=== PATIENT | female | born 1965 | race Two or more races ===

== ENCOUNTER 2017-05-23 06:22 | Day surgery (SDC) | payer SELFPAY ==
[2017-05-14 13:47] VITALS: BMI 22.9
[~2017-05-23 06:22] MED LIST: HEPARIN NA (PORCINE) 5,000 UNITS/ML 1ML VIAL SQ ONE
[2017-05-23] MEDS ORDERED: HEPARIN NA (PORCINE) 5,000 UNITS/ML 1ML VIAL ONE (07:20)
[2017-05-23] MEDS ORDERED: BUPIVACAINE HCL/PF 2.5 MG/ML - 30 ML VIAL IJ ONE (07:23)
[2017-05-23] MEDS ORDERED: LIDOCAINE 1%/EPI 1:100000 (20 ML MULTI DOSE VIAL) ONE (07:23)
[2017-05-23] MEDS ORDERED: EPINEPHrine 1:1,000 1 MG/1 ML - 30ML VIAL (INJECTION) ONE (07:23)
[2017-05-23] MEDS ORDERED: LIDOCAINE HCL 1%, 10 MG/ML (20ML VIAL) ONE (07:23)
[2017-05-23] MEDS ORDERED: PROPOFOL 20 ML ONE (07:28)
[2017-05-23] MEDS ORDERED: NEOSTIGMINE METHYLSULFATE 0.5 MG/ML - 10 ML MDV ONE (07:29)
[2017-05-23] MEDS ORDERED: ROCURONIUM BROMIDE 50 MG/5 ML VIAL ONE ×3 (07:29→13:43)
[2017-05-23] MEDS ORDERED: MIDAZOLAM HCL 2 MG/2 ML SINGLE DOSE VIAL ONE (07:31)
[2017-05-23] MEDS ORDERED: HEPARIN NA (PORCINE) 5,000 UNITS/ML 1ML VIAL SQ ONE (08:20)
[2017-05-23] MEDS ORDERED: DESFLURANE GAS 240 ML BOTTLE IH ONE ×2 (10:06→16:18)
[2017-05-23] MEDS ORDERED: HYDROmorphone HCL/PF 1 MG/ML VIAL (FOR PYXIS CHARGING ONLY) ONE ×4 (10:24→17:42)
[2017-05-23] MEDS ORDERED: ePHEDrine SULFATE 50 MG/1 ML AMPULE ONE (11:15)
[2017-05-23] MEDS ORDERED: PHENYLEPHRINE HCL 10 MG/1 ML SINGLE DOSE VIAL ONE (11:15)
[2017-05-23] MEDS ORDERED: PROMETHAZINE HCL 25 MG/1 ML VIAL IVPUSH PRN (16:23)
[2017-05-23] MEDS ORDERED: HYDROmorphone *PCA* 10MG/50ML DISP.SYRIN PCA ONE (16:24)
[2017-05-23] MEDS ORDERED: HYDROmorphone *PCA* 10MG/50ML DISP.SYRIN PCA SCH (16:30)
[2017-05-23] MEDS ORDERED: BUPIVACAINE HCL/PF 0.25% (2.5MG/ML) 10 ML VIAL IJ ONE (17:41)
[2017-05-23] MEDS: HYDROmorphone *PCA* 10MG/50ML DISP.SYRIN PCA SCH ×2 (19:05→20:10)
[2017-05-23] MEDS ORDERED: ACETAMINOPHEN 325 MG TABLET (FP) PO PRN (19:38)
[2017-05-23] MEDS ORDERED: ZOLPIDEM TARTRATE 5 MG TABLET PO PRN (19:38)
[2017-05-23] MEDS ORDERED: LACTATED RINGERS SOLUTION 1,000 ML IV SCH (19:45)
[2017-05-23] MEDS ORDERED: oxyCODONE HCL 5 MG TABLET PO PRN (19:51)
[2017-05-23] MEDS ORDERED: CEFAZOLIN 1 GM in DEXTROSE 5%-WATER - 50 ML IVPB SCH (21:00)
[2017-05-23] MEDS: ONDANSETRON 4 MG/2 ML VIAL IVPB PRN (22:03)
[2017-05-23] MEDS: DOCUSATE SODIUM 100 MG CAPSULE (FP) PO SCH (22:23)
[2017-05-23] MEDS ORDERED: ENOXAPARIN NA (PORCINE) 40 MG/0.4 ML DISP.SYRIN SQ ONE (23:00)
[2017-05-24] MEDS: CEFAZOLIN (PRE-DOCKED) 50 ML IVPB SCH ×2 (02:04→08:55)
[2017-05-24] MEDS: ONDANSETRON 4 MG/2 ML VIAL IVPB PRN (02:15)
--- NOTE | 2017-05-24 08:59 | PN ---
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 Pt states that pain is well controlled, reports no anesthetic complications, and is tolerating oral intake. Will D/C IV TRUCK STRIKER and switch to oral pain medication in anticipation of discharge home later today.
[2017-05-24] MEDS: DOCUSATE SODIUM 100 MG CAPSULE (FP) PO SCH (09:33)
[2017-05-24] MEDS: oxyCODONE HCL 5 MG TABLET PO PRN ×3 (11:51→18:07)
[2017-05-24 14:23] VITALS: BP 128/75; PULSE 91; TEMP 98
--- NOTE | 2017-05-25 14:57 | PATH ---
Surgical Pathology Report Patient Name: ELMER UPTON [facility]. Rec. #: [id number] /Age/Gender: 1965 (Age: 51) / F Account: [id number] Location: [facility] AMBULATORY Taken: 05/24/2017 Received: 05/24/2017 Reported: 05/25/2017 Physicians: Christy Blackburn M.D. Specimen(s) Received A: RIGHT BREAST SKIN AND TISSUE B: LEFT BREAST SKIN AND TISSUE C: ABDOMEN SKIN AND TISSUE Clinical History Cosmetic Final Diagnosis A. BREAST, SKIN AND TISSUE, RIGHT: BENIGN BREAST TISSUE WITH FIBROCYSTIC CHANGE WITH FOCAL USUAL DUCTAL HYPERPLASIA AND FOCI OF STROMAL FIBROSIS. Comment: Immunohistochemical stain for e-cadherin performed and interpreted at [facility] on block A2 is positive, supporting ductal hyperplasia. B. BREAST, SKIN AND TISSUE, LEFT: BENIGN BREAST TISSUE WITH FIBROCYSTIC CHANGE WITH FOCAL USUAL DUCTAL HYPERPLASIA AND FOCI OF STROMAL FIBROSIS. C. ABDOMINAL SKIN AND TISSUE, ABDOMINOPLASTY: UNREMARKABLE SKIN AND UNDERLINE SOFT TISSUE (GROSS EXAM). Electronically Signed Fabian Rogers M.D. Gross Description A. Received in formalin labeled "right breast skin and tissue" is a 64 g, 10.3 x 10.0 x 2.0 cm aggregate of multiple minor-yellow, irregular, unoriented fragments of fibroadipose tissue and a brown, unremarkable skin. Sectioning reveals foci of white fibrous tissue. No definitive masses are identified. Sales Project [employer] sections are submitted in 3 cassettes. B. Received in formalin labeled "left breast skin and tissue" is an 89 g, 10.0 x 10.0 x 2.3 cm aggregate of multiple minor-yellow, irregular, unoriented portions of fibroadipose tissue and brown, unremarkable skin. Sectioning reveals foci of white fibrous tissue. No definitive masses are identified. Sales Project Manager sections are submitted in 4 cassettes. C. Received in formalin labeled "abdomen skin and tissue" is a 799 g, 30.0 x 15.0 x 3.0 cm aggregate of 2 brown, triangular, unoriented portions of skin. The epidermal surfaces are unremarkable. Sectioning reveals unremarkable yellow, lobulated adipose tissue. No lesions are identified. No sections are submitted, gross only. /05/24/2017 saudi05/24/2017
== END 2017-05-24 18:50 | disposition home or self-care (01) ==
LOC: FASU 06:22 → FM/S 19:38 → FASU 05-24 18:50
PROVIDERS: ATTEND Surgery
PROC: 0H0V0ZZ Alteration of Bilateral Breast, Open Approach (ICD-10-PCS; principal; 2017-05-23 09:10)
PROC: 0J080ZZ Alteration of Abdomen Subcutaneous Tissue and Fascia, Open Approach (ICD-10-PCS; 2017-05-23 09:10)
PROC: 0J083ZZ Alteration of Abdomen Subcutaneous Tissue and Fascia, Percutaneous Approach (ICD-10-PCS; 2017-05-23 09:10)
DX: Z41.1 Encounter for cosmetic surgery (principal)
CPT/HCPCS: 84703; 88304-TC; 88305-TC; 88342-TC; 94010; 94760; J1644